=== PATIENT | female | born 1985 | race African-American/Black ===

== ENCOUNTER 2016-07-23 11:25 | Emergency (ER) | payer SELFPAY ==
--- NOTE | ~2016-07-23 | CT2 ---
[facility] A Service of [facility] RADIOLOGY TEXT RESULTS PATIENT: ROBYN EVANS LOCATION: [facility] : 89 UNIT #: [id number] AGE: [address]: Stephen Matute MD SEX: F ORDER DR: [id number] [facility] [address] [place], [place] [address] [id number] MR#: [id number] #: [id number] NAME: ROBYN EVANS : 1985 SEX: F STUDY DATE/TIME: 07/23/2016 13:06 UNIT: [facility] ROOM: STUDY DESCRIPTION: CT Abd and Pelv W Cont Attending Physician: Stephen Matute M.D. Ordering Physician: Stephen Matute M.D. Primary Care Physician: Primary Care Physician No MEDICAL IMAGING REPORT This report is preliminary unless electronic signature is present EXAM CT abdomen and pelvis 07/23/2016 HISTORY Vomiting x2 weeks. HCG negative. TECHNIQUE CT abdomen and pelvis performed with intravenous administration of 100 mL Isovue-370. Enteric contrast not administered. This CT exam was performed with one or more of the following radiation dose reduction techniques: automatic exposure control, adjustment of mA and/or kV according to patient size, and iterative reconstruction. FINDINGS Study somewhat limited in the absence of enteric contrast. There are some patchy and linear densities at the bilateral lung bases left greater than right probably atelectatic in nature. No dense airspace consolidation. Trace left effusion. Heart upper limits of normal in size. The liver somewhat low in density suggesting fatty infiltration. No suspicious focal hepatic parenchymal abnormality. Liver is within normal limits of size. Gallbladder unremarkable. Spleen unremarkable. Pancreas, adrenal glands, kidneys show no acute abnormality. No hydronephrosis or perinephric inflammatory change. CT Pelvis: No inguinal adenopathy. Urinary bladder, uterus and adnexal regions unremarkable. CT Pelvis: No abnormal fluid collections in pelvis. No inguinal adenopathy. No pelvic or retroperitoneal adenopathy. Distal esophagus, stomach, small bowel normal. Appendix normal. Colon unremarkable. Vascular structures normal in caliber. Bony structures unremarkable. IMPRESSION [facility] A Service of [facility] & [facility] RADIOLOGY TEXT RESULTS PATIENT: ROBYN EVANS LOCATION: [facility] : 89 UNIT #: [id number] AGE: [address]: Stephen Matute MD SEX: F ORDER DR: 1. No clearly acute abnormality is seen in the abdomen or pelvis. 2. Gallbladder, pancreas, kidneys, appendix unremarkable. Uterus and adnexal regions normal in appearance. 3. Remainder of unopacified alimentary canal unremarkable. 4. Probable diffuse fatty infiltration of liver without focal hepatic parenchymal abnormality. 5. Minimal dependent atelectasis at the lung bases. Trace left pleural effusion. Not a drainable fluid collection. Etiology unclear. See remainder of incidental findings in body of report above. Dictated by... Graham Proctor M.D. THIS IS AN ELECTRONICALLY VERIFIED REPORT Graham Proctor M.D. at 07/25/2016 8:22 PM ANSON/malika TD: 07/23/2016 15:35 JOB #: [id number] MEDICAL IMAGING REPORT COPY
[~2016-07-23 11:25] MED LIST: BACTRIM DS TABL1 TA1 PO; PYRIDIUM PO
[2016-07-23 11:39] LABS: BASOPHIL# 0.1 X10e3 (0-0.3); BASOPHIL% 0.7 % (0-2.5); EOSINOPHIL# 0.1 X10e3 (0-0.7); EOSINOPHIL% 1.6 % (0.0-7.0); HEMATOCRIT 44.7 % (35.0-45.0); HEMOGLOBIN 14.9 gm/dL (12.0-16.0); LYMPHOCYTE# 2.8 X10e3 (1.0-3.5); LYMPHOCYTE% 31.2 % (17.0-45.0); MEAN CELL VOLUME 83.9 FL (83-96); MEAN CORPUSCULAR HEMOGLOBIN 27.9 PG (28-34); MEAN CORPUSCULAR HGB CONC 33.2 g/dL (30-36); MEAN PLATELET VOLUME 7.8 FL (6.5-11.5); MONOCYTE# 0.5 X10e3 (0-1.0); MONOCYTE% 5.4 % (3.0-12.0); NEUTROPHIL# 5.4 X10e3 (1.5-7.1); NEUTROPHIL% 61.1 % (40-75); PLATELET COUNT 342 X10e3 (140-420); RED BLOOD COUNT 5.32 X10e (3.90-5.30); RED CELL DISTRIBUTION WIDTH 13.7 % (11.0-15.5); WHITE BLOOD COUNT 8.9 X10e3 (4.0-10.5)
[2016-07-23 11:42] LABS: DIFF IND NO
[2016-07-23 12:22] LABS: ALBUMIN SERUM 4.4 g/dL (3.5-5.0); ALKALINE PHOSPHATASE 90 U/L (32-92); ALT (SGPT) 14 U/L (10-40); AST (SGOT) 26 U/L (10-42); BILIRUBIN, DIRECT 0.2 mg/dL (0.0-0.2); BILIRUBIN,INDIRECT 0.5 mg/dL (0.0-0.9); BILIRUBIN,TOTAL 0.7 mg/dL (0.2-2.0); BLOOD UREA NITROGEN 10 mg/dL (9-23); BUN/CREATININE RATIO 11.11; CALCIUM SERUM 9.5 mg/dL (8.4-10.2); CARBON DIOXIDE 27 mmol/L (22-31); CHLORIDE 103 mmol/L (100-111); CREATININE SERUM 0.9 mg/dL (0.6-1.4); GLOM FILT RATE Estimated ABOVE60 mL/min (>60); GLUCOSE FASTING 111 mg/dL (70-110); LIPASE 25 U/L (22-51); POTASSIUM 3.4 mmol/L (3.5-5.1); PROTEIN TOTAL SERUM 8.3 g/dL (6.0-8.3); SODIUM 140 mmol/L (135-145)
[2016-07-23 12:25] LABS: URINE SOURCE CLEAN CATCH
[2016-07-23 12:29] LABS: URINE APPEARANCE CLOUDY; URINE BLOOD NEG (NEG); URINE COLOR DK YELLOW; URINE GLUCOSE NEG (NEG); URINE KETONE TRACE (NEG); URINE LEUKOCYTE ESTERASE TRACE (NEG); URINE NITRATE NEG (NEG); URINE PH 5.5 (5-8); URINE PROTEIN TRACE (NEG); URINE SPECIFIC GRAVITY 1.037 (1.003-1.035)
[2016-07-23 12:31] LABS: CULTURE INDICATED? YES; URINE BACTERIA AUWI 2+ (NEGATIVE); URINE SQUAMOUS EPITHELIAL CELL MOD /[HPF]
[2016-07-23 12:49] LABS: URINE BILIRUBIN NEG (NEG)
[2016-07-23 12:53] LABS: URBCS1 AUWI 0-2 /[HPF] (0-2); URINE MUCUS PRESENT
== END 2016-07-23 14:08 | disposition home or self-care (01) ==
LOC: CED 11:25
PROVIDERS: Emergency Medicine
DX: R11.2 Nausea with vomiting, unspecified (principal); Z91.040 Latex allergy status; Z79.899 Other long term (current) drug therapy
CPT/HCPCS: 36415; 74177; 80048; 80076; 81003; 83690; 84703; 85025; 87086; 96361; 96374; 99284; J2405; Q9967